=== PATIENT | female | born 1940 | race Caucasian/White ===

== ENCOUNTER 2016-02-25 18:19 | Emergency (ER) | payer OTHER, BC ==
[~2016-02-25] VITALS: Ht 157.5 cm; Wt 104.6 kg
[~2016-02-25 18:19] MED LIST: AMLODIPINE BESY10 MG PO; BACTRIM,SEPT1 TABLET PO; BENAZEPRIL HCL40 MG PO; CALCITRATE200 MG PO; CLARITIN10 MG PO; CLONAZEPAM0.5 MG PO; COUMADIN5 MG PO; DURAGESIC25 MCG TD; ENDOCET 5-3251 EACH PO; FENOFIBRATE160 M1 PO; FEOSOL325 MG PO; FUROSEMIDE80 MG PO; GABAPENTIN100 MG PO; GEODON20 MG PO; GLIPIZIDE XL10 M1 PO; GLUCOTROL XL10 MG PO; HYDROCODON-ACE1 EAC5 PO; JANUVIA25 M1 PO; LANTUS 3 M100 UNITS1 SC; LASIX40 MG PO; LEXAPRO10 MG PO; LIPITOR80 MG PO; LOFIBRA,TRIGLI160 MG PO; LOPRESSOR50 MG PO; LOTENSIN20 MG PO; LOTRISONE15 GM TP; Lipitor PO; MAX FREEZE TP; METOLAZONE5 MG PO; METOPROLOL SUCC50 MG PO; MUCINEX DM ER1 EAC1 PO; MUCINEX DM ER1 EACH PO; MULTIVITAMIN1 EAC1 PO; MULTIVITAMIN1 EAC2 PO; NORVASC5 MG PO; ONDANSETRON HCL4 MG PO; OXYCONTIN10 MG PO; OXYCONTIN15 MG PO; PERCOCET 5/31 TABLET PO; PROTONIX40 MG PO; ROXICODONE5 MG PO; SENOKOT,SENN1 TABLET PO; SINEMET CR 50-1 EACH PO; STOOL SOFTENER100 M1 PO; SYSTANE ULTRA 015 ML BOTH EYES; TRAMADOL HCL50 MG PO; TRILIPIX135 MG PO; TYLENOL EXTRA500 MG PO; VANCOMYCIN HCL1 GM IV; VANCOMYCIN1500 MG/25 IV; ZANAFLEX4 M1 PO; ZYRTEC10 M3 PO
[2016-02-25 18:58] VITALS: BP 160/69
[2016-02-25] MEDS ORDERED: TRAMADOL HCL50 MG PO (20:33)
== END 2016-02-25 20:46 | disposition home or self-care (01) ==
LOC: EME 18:19
DX: G44.209 Tension-type headache, unspecified, not intractable (principal); E11.9 Type 2 diabetes mellitus without complications; E78.5 Hyperlipidemia, unspecified; G89.29 Other chronic pain; Z87.442 Personal history of urinary calculi; G20 Parkinson's disease; Z86.14 Personal history of Methicillin resistant Staphylococcus aureus infection; Z79.891 Long term (current) use of opiate analgesic; Z79.01 Long term (current) use of anticoagulants; Z79.4 Long term (current) use of insulin
CPT/HCPCS: 70450; 99281; 99283

== ENCOUNTER 2016-02-27 16:15 | Emergency (ER) | payer OTHER, BC ==
[~2016-02-27] VITALS: Ht 157.5 cm; Wt 105.0 kg
[2016-02-27 19:58] LABS: EOSINOPHIL COUNT 0.1 K/uL (0-0.3); HEMATOCRIT 40.8 % (36.0-46.0); IMMATURE GRANULOCYTE (%) 0.5 % (0.0-0.7); IMMATURE GRANULOCYTE COUNT 0.6 K/uL; LYMPHOCYTE COUNT 2.6 K/uL (1.0-2.8); MCH 25.5 PG (29.0-34.0); MCHC 31.6 G/DL (30.0-36.0); MCV 80.6 FL (83-99); MEAN PLAT.VOLUME 10.8 uM^3 (9.5-12.4); MONOCYTE (%) 6.6 % (3-12); MONOCYTE COUNT 0.8 K/uL (0-0.8); NEUTROPHIL (%) 71.3 % (45-76); NEUTROPHIL COUNT 8.9 K/uL (1.8-6.4); PLATELET COUNT 209 K/uL (156-360); RBC DIS.WIDTH-CV 15.5 % (11.8-14.6); RBC DIS.WIDTH-SD 44.8 % (39-53); RED BLOOD COUNT 5.06 M/uL (3.80-5.20); WHITE BLOOD COUNT 12.5 K/uL (4.1-10.2)
[2016-02-27 20:06] LABS: CHLORIDE 102 mEq/L (99-109); POTASSIUM 3.6 mEq/L (3.7-5.4); SODIUM 140 mEq/L (136-147)
[2016-02-27 20:07] LABS: GLUCOSE 162 mg/dL (70-99)
[2016-02-27 20:09] LABS: ANION GAP 12 MEQ/L (2-14)
[2016-02-27 20:11] LABS: GFR ESTIMATE (CALCULATED) > 59 mL/min/
[2016-02-27 20:12] LABS: UREA NITROGEN (BUN) 24 mg/dL (9-23)
[2016-02-27] MEDS ORDERED: FIORICET,ESG1 TABLET PO (23:15)
[2016-02-27 23:38] VITALS: BP 170/83
== END 2016-02-27 23:39 | disposition home or self-care (01) ==
LOC: EME 16:15
PROVIDERS: Emergency Medicine
DX: R51 Headache (principal); E78.5 Hyperlipidemia, unspecified; G89.29 Other chronic pain; G20 Parkinson's disease; Z87.442 Personal history of urinary calculi; Z86.14 Personal history of Methicillin resistant Staphylococcus aureus infection
CPT/HCPCS: 70450; 80048; 85025; 99281; 99284; J1200; J2765; J7030

== ENCOUNTER 2016-05-13 14:22 | Observation (INO) | payer OTHER, BC ==
[~2016-05-13] VITALS: Ht 157.5 cm; Wt 108.5 kg
[~2016-05-13 14:22] MED LIST changes: +FIORICET,ESG1 TABLET PO
[2016-05-13 14:55] LABS: HEMATOCRIT 38.8 % (36.0-46.0); MCH 25.2 PG (29.0-34.0); MCHC 31.2 G/DL (30.0-36.0); MCV 80.8 FL (83-99); MEAN PLAT.VOLUME 10.2 uM^3 (9.5-12.4); PLATELET COUNT 200 K/uL (156-360); RBC DIS.WIDTH-CV 15.3 % (11.8-14.6); RBC DIS.WIDTH-SD 45.1 % (39-53)
[2016-05-13 15:06] LABS: CHLORIDE 103 mEq/L (99-109); POTASSIUM 3.3 mEq/L (3.7-5.4); SODIUM 140 mEq/L (136-147)
[2016-05-13 15:07] LABS: GLUCOSE 104 mg/dL (70-99)
[2016-05-13 15:09] LABS: ANION GAP 12 MEQ/L (2-14)
[2016-05-13 15:11] LABS: GFR ESTIMATE (CALCULATED) > 59 mL/min/
[2016-05-13 15:12] LABS: UREA NITROGEN (BUN) 17 mg/dL (9-23)
[2016-05-13 15:16] LABS: TROP-I INTERPRETATION NEGATIVE; TROPONIN-I 0.01 ng/mL (0.0-0.30)
[2016-05-13] MEDS ORDERED: AVENTYL,PAMELOR25 MG PO (18:52)
[2016-05-13] MEDS ORDERED: ALLOPURINOL100 MG PO (18:52)
[2016-05-13] MEDS ORDERED: WELCHOL625 MG PO (18:53)
[2016-05-13] MEDS ORDERED: [UNRECOGNIZED DRUG - OTHER] PO (19:13)
[2016-05-13 21:13] LABS: INTER. NORMALIZED RATIO 1.5; PROTHROMBIN TIME 15.4 (9.2-11.2); PTT 30.2 (25-32)
[2016-05-13 21:14] VITALS: BP 221/93
[2016-05-13 21:33] LABS: POINT-OF-CARE METER ID UU14162513
[2016-05-13 21:36] LABS: DIRECT BILIRUBIN 0.1 mg/dL (0.0-0.3); TOTAL BILIRUBIN 0.7 MG/DL (0.0-1.0)
[2016-05-13 21:42] LABS: ALKALINE PHOSPHATASE 72 IU/L (3-129); LIPASE 26 U/L (1.0-51.0)
[2016-05-13 21:45] LABS: TROP-I INTERPRETATION NEGATIVE; TROPONIN-I 0.02 ng/mL (0.0-0.30)
[2016-05-13 22:03] LABS: D-DIMER ELISA 1.38 mg/L FEU (< 0.57)
[2016-05-13 22:57] LABS: METH RESISTANT S AUREUS PCR NEGATIVE (NEGATIVE)
[2016-05-13 22:58] LABS: PROBE CHECK PASS; SPECIMEN PROCESSING CONTROL PASS
[2016-05-13 23:11] VITALS: BP 188/80
[2016-05-13 23:25] LABS: POINT-OF-CARE METER ID UU14162513
[2016-05-13 23:29] LABS: TROP-I INTERPRETATION NEGATIVE; TROPONIN-I < 0.01 ng/mL (0.0-0.30)
[2016-05-14 00:04] VITALS: BP 164/80
[2016-05-14 03:22] LABS: HEMATOCRIT 35.8 % (36.0-46.0); MCH 25.3 PG (29.0-34.0); MCV 81.5 FL (83-99); MEAN PLAT.VOLUME 10.2 uM^3 (9.5-12.4); PLATELET COUNT 184 K/uL (156-360); RBC DIS.WIDTH-CV 15.5 % (11.8-14.6); RBC DIS.WIDTH-SD 45.8 % (39-53); RED BLOOD COUNT 4.39 M/uL (3.80-5.20); WHITE BLOOD COUNT 9.1 K/uL (4.1-10.2)
[2016-05-14 03:33] LABS: INTER. NORMALIZED RATIO 1.5; PROTHROMBIN TIME 15.4 (9.2-11.2)
[2016-05-14 03:35] LABS: CHLORIDE 106 mEq/L (99-109); POTASSIUM 3.2 mEq/L (3.7-5.4); SODIUM 143 mEq/L (136-147)
[2016-05-14 03:37] LABS: GLUCOSE 135 mg/dL (70-99)
[2016-05-14 03:38] LABS: ANION GAP 13 MEQ/L (2-14)
[2016-05-14 03:41] LABS: GFR ESTIMATE (CALCULATED) > 59 mL/min/
[2016-05-14 03:42] LABS: UREA NITROGEN (BUN) 14 mg/dL (9-23)
[2016-05-14 03:49] LABS: TROP-I INTERPRETATION NEGATIVE; TROPONIN-I < 0.01 ng/mL (0.0-0.30)
[2016-05-14 08:30] LABS: POINT-OF-CARE METER ID UU14162513
[2016-05-14 08:39] VITALS: BP 168/78
== END 2016-05-14 10:43 | disposition home or self-care (01) ==
LOC: EME → EDBD 14:22 → EME 14:22 → EDOF 18:59 → 5WEST 20:04
PROVIDERS: Hospitalist; Internal Medicine
DX: I20.9 Angina pectoris, unspecified (principal); I10 Essential (primary) hypertension; E11.9 Type 2 diabetes mellitus without complications; G20 Parkinson's disease; G89.29 Other chronic pain; M54.9 Dorsalgia, unspecified; G47.33 Obstructive sleep apnea (adult) (pediatric); E66.01 Morbid (severe) obesity due to excess calories; Z86.711 Personal history of pulmonary embolism; Z86.718 Personal history of other venous thrombosis and embolism; E78.5 Hyperlipidemia, unspecified; Z85.038 Personal history of other malignant neoplasm of large intestine; Z68.41 Body mass index [BMI] 40.0-44.9, adult
CPT/HCPCS: 71020; 71275; 80048; 80076; 82948; 83690; 84484; 85027; 85379; 85610; 85730; 87641; 93005; 99202; 99281; 99285; G0378; J0360; J1170; J1650; J2405; J7030

== ENCOUNTER 2016-07-29 09:50 | Day surgery (SDC) | payer OTHER, BC ==
[~2016-07-29] VITALS: Ht 157.5 cm; Wt 107.1 kg
[~2016-07-29 09:50] MED LIST changes: +ALLOPURINOL100 MG PO; +AVENTYL,PAMELOR10 MG PO; +AVENTYL,PAMELOR25 MG PO; +LASIX80 MG PO; +WARFARIN SODIU7.5 MG PO; +WELCHOL625 MG PO; +[UNRECOGNIZED DRUG - OTHER] PO
[2016-07-29 10:59] LABS: POINT-OF-CARE METER ID UU13113696
[2016-07-29 11:10] LABS: INTER. NORMALIZED RATIO 1.5; PROTHROMBIN TIME 15.6 (9.2-11.2)
[2016-07-29 15:15] VITALS: BP 186/77
[2016-07-29 16:15] VITALS: BP 174/73
[2016-07-29 16:33] LABS: POINT-OF-CARE METER ID UU13113781; POINT-OF-CARE USER ID NUTSLF44
[2016-07-29 19:33] VITALS: BP 181/74
[2016-07-29 21:24] LABS: POINT-OF-CARE METER ID UU14174216; POINT-OF-CARE USER ID ENVMNS
[2016-07-29 23:20] VITALS: BP 149/67
[2016-07-30 01:34] VITALS: BP 180/74
[2016-07-30 06:14] LABS: EOSINOPHIL (%) 0.4 % (0-5); HEMATOCRIT 36.6 % (36.0-46.0); IMMATURE GRANULOCYTE (%) 0.9 % (0.0-0.7); IMMATURE GRANULOCYTE COUNT 0.1 K/uL; INSTRUMENT ABS NEUTROPHIL CT 7.2 K/uL; LYMPHOCYTE COUNT 1.6 K/uL (1.0-2.8); MCH 25.4 PG (29.0-34.0); MCHC 31.4 G/DL (30.0-36.0); MCV 80.8 FL (83-99); MEAN PLAT.VOLUME 10.2 uM^3 (9.5-12.4); MONOCYTE (%) 6.9 % (3-12); MONOCYTE COUNT 0.7 K/uL (0-0.8); NEUTROPHIL (%) 75.2 % (45-76); NEUTROPHIL COUNT 7.2 K/uL (1.8-6.4); PLATELET COUNT 190 K/uL (156-360); RBC DIS.WIDTH-CV 15.1 % (11.8-14.6); RBC DIS.WIDTH-SD 44.5 % (39-53); RED BLOOD COUNT 4.53 M/uL (3.80-5.20); WHITE BLOOD COUNT 9.6 K/uL (4.1-10.2)
[2016-07-30 06:43] LABS: ANION GAP 10 MEQ/L (2-14); CHLORIDE 104 MEQ/L (99-109); GFR ESTIMATE (CALCULATED) > 59 mL/min/; GLUCOSE 136 mg/dL (70-99); POTASSIUM 3.3 MEQ/L (3.7-5.4); SAMPLE HEMOLYSIS CHECK 0; SAMPLE ICTERIC CHECK 0; SAMPLE LIPEMIA CHECK 0; SODIUM 142 MEQ/L (136-147); UREA NITROGEN (BUN) 16 mg/dL (9-23)
[2016-07-30 07:50] VITALS: BP 176/82
[2016-07-30 12:13] VITALS: BP 184/86
[2016-07-30] MEDS ORDERED: CLOPIDOGREL75 MG PO (14:28)
== END 2016-07-30 14:35 | disposition home or self-care (01) ==
LOC: CATH 09:50 → 4EAST 15:29
PROVIDERS: Internal Medicine Cardiovascular Disease
DX: I25.10 Atherosclerotic heart disease of native coronary artery without angina pectoris (principal); E11.9 Type 2 diabetes mellitus without complications; Z79.4 Long term (current) use of insulin; Z79.84 Long term (current) use of oral hypoglycemic drugs; E66.01 Morbid (severe) obesity due to excess calories; Z68.39 Body mass index [BMI] 39.0-39.9, adult; I10 Essential (primary) hypertension; E78.5 Hyperlipidemia, unspecified; Z86.711 Personal history of pulmonary embolism; Z79.01 Long term (current) use of anticoagulants
CPT/HCPCS: 80048; 82948; 85025; 85347; 85610; 93005; C1725; C1769; C1874; C1887; G0378; J0360; J1644; J1815; J2250; J2405; J3010; J3246

== ENCOUNTER 2017-06-04 13:49 | Emergency (ER) | payer OTHER, BC ==
[~2017-06-04] VITALS: Ht 157.5 cm; Wt 100.4 kg
[~2017-06-04 13:49] MED LIST changes: +CLOPIDOGREL75 MG PO
[2017-06-04 14:41] LABS: BASOPHIL (%) 0.1 % (0-1); EOSINOPHIL COUNT 0.3 K/uL (0-0.3); HEMATOCRIT 42.9 % (36.0-46.0); HEMOGLOBIN 13.9 G/DL (11.9-15.5); IMMATURE GRANULOCYTE (%) 0.6 % (0.0-0.7); LYMPHOCYTE (%) 13.9 % (15-42); LYMPHOCYTE COUNT 2.2 K/uL (1.0-2.8); MCH 26.9 PG (29.0-34.0); MCHC 32.4 G/DL (30.0-36.0); MCV 83.1 FL (83-99); MONOCYTE (%) 6.3 % (3-12); NEUTROPHIL (%) 77.1 % (45-76); NEUTROPHIL COUNT 12.4 K/uL (1.8-6.4); PLATELET COUNT 238 K/uL (156-360); RBC DIS.WIDTH-CV 15.5 % (11.8-14.6); RBC DIS.WIDTH-SD 46.5 % (39-53); RED BLOOD COUNT 5.16 M/uL (3.80-5.20); WHITE BLOOD COUNT 16.1 K/uL (4.1-10.2)
[2017-06-04 14:46] LABS: APPEARANCE CLOUDY ((CLEAR)); BILIRUBIN NEGATIVE; BLOOD SMALL; COLOR YELLOW ((YELLOW)); GLUCOSE (STRIP) NEGATIVE; KETONES 5; LEUKOCYTES LARGE; NITRITE NEGATIVE; PROTEIN (STRIP) 30; SPECIFIC GRAVITY 1.015 (1.000-1.030); UROBILINOGEN 0.2 MG/DL (0.2-1.0)
[2017-06-04 14:49] LABS: ALBUMIN 4.2 g/dL (3.2-4.8); CHLORIDE 108 mEq/L (99-109); POTASSIUM 4.4 mEq/L (3.7-5.4); SODIUM 140 mEq/L (136-147)
[2017-06-04 14:51] LABS: GLUCOSE 143 mg/dL (70-99)
[2017-06-04 14:52] LABS: TOTAL PROTEIN 7.7 g/dL (6.4-8.3)
[2017-06-04 14:53] LABS: TOTAL BILIRUBIN 0.7 mg/dL (0.0-1.0)
[2017-06-04 14:55] LABS: ALKALINE PHOSPHATASE 114 IU/L (3-129); CREATININE 1.3 mg/dL (0.6-1.3); GFR ESTIMATE (CALCULATED) 43 mL/min/
[2017-06-04 14:56] LABS: UREA NITROGEN (BUN) 36 mg/dL (9-23)
[2017-06-04 14:56] LABS: BACTERIA RARE /HPF; EPITHELIAL CELLS RARE /HPF; HYALINE CASTS 30-40 /LPF; MUCUS TRACE /LPF; RED BLOOD CELLS 15-20 /HPF (0-5); WHITE BLOOD CELLS TNTC /HPF (0-5)
[2017-06-04 14:57] LABS: AST (GOT) 20 IU/L (2-34)
[2017-06-04 14:58] LABS: ALT (GPT) 7 IU/L (3-49); LIPASE 15 U/L (1.0-51.0)
[2017-06-04 17:00] VITALS: BP 139/63
[2017-06-04] MEDS ORDERED: BACTRIM,SEPT1 TABLET PO (17:00)
[2017-06-04] MEDS ORDERED: BENTYL20 MG PO (17:00)
[2017-06-04] MEDS ORDERED: ZOFRAN ODT4 MG PO (17:00)
[2017-06-04] MEDS ORDERED: KEFLEX500 MG PO (17:00)
== END 2017-06-04 17:43 | disposition home or self-care (01) ==
LOC: EME 13:49
PROVIDERS: Physician Assistant
DX: L03.317 Cellulitis of buttock (principal); R19.7 Diarrhea, unspecified; R10.84 Generalized abdominal pain; N20.2 Calculus of kidney with calculus of ureter; K80.20 Calculus of gallbladder without cholecystitis without obstruction; I10 Essential (primary) hypertension; E78.5 Hyperlipidemia, unspecified; E11.9 Type 2 diabetes mellitus without complications; I48.91 Unspecified atrial fibrillation; G20 Parkinson's disease; Z87.442 Personal history of urinary calculi; Z86.711 Personal history of pulmonary embolism; Z86.718 Personal history of other venous thrombosis and embolism; Z79.01 Long term (current) use of anticoagulants; Z79.4 Long term (current) use of insulin; Z90.710 Acquired absence of both cervix and uterus; Z86.14 Personal history of Methicillin resistant Staphylococcus aureus infection
CPT/HCPCS: 71046; 74177; 80053; 81003; 83605; 83630; 83690; 85025; 87493; 87506; 99281; 99285; J2405; J7040